=== PATIENT | male | born 1980 | race Caucasian/White ===

== ENCOUNTER 2018-12-19 01:37 | Emergency (ER) | payer SELFPAY ==
[2018-12-19] MEDS ORDERED: Ondansetron 4 MG/2 ML SDV IVPUSH ONE (01:53)
[2018-12-19] MEDS ORDERED: Sodium Chloride 0.9% 1,000 ML IV ONE (01:53)
--- NOTE | 2018-12-19 01:53 | EDM.PDOC ---
ED HPI GENERAL MEDICAL PROBLEM - General Chief Complaint: General Stated Complaint: SHORTNESS OF BREATH Time Seen by Provider: 12/19/18 01:50 - History of Present Illness INITIAL COMMENTS - FREE TEXT/NARRATIVE: HISTORY AND PHYSICAL: History of present illness: Patient's 38-year-old white male history of substance abuse and for methamphetamine presents with concern of dehydration states some generalized weakness denies nausea vomiting fever chills or other complaints. Review of systems: As per history of present illness and below otherwise all systems reviewed and negative. Past medical history: As per history of present illness and as reviewed below otherwise noncontributory. Surgical history: As per history of present illness and as reviewed below otherwise noncontributory. Social history: No reported history of drug or alcohol abuse. Family history: As per history of present illness and as reviewed below otherwise noncontributory. Physical exam: HEENT: Atraumatic, normocephalic, pupils reactive, negative for conjunctival pallor or scleral icterus, mucous membranes dry, throat clear, neck supple, nontender, trachea midline. Lungs: Clear to auscultation, breath sounds equal bilaterally, chest nontender. Heart: S1S2, regular, negative for clicks, rubs, or JVD. Abdomen: Soft, nondistended, nontender. Negative for masses or hepatosplenomegaly. Negative for costovertebral tenderness. Pelvis: Stable nontender. Genitourinary: Deferred. Rectal: Deferred. Extremities: Atraumatic, negative for cords or calf pain. Neurovascular unremarkable. Neuro: Awake, alert, oriented. Cranial nerves II through XII unremarkable. Cerebellum unremarkable. Motor and sensory unremarkable throughout. Exam nonfocal. Diagnostics: CBC CMP UA EKG Therapeutics: Saline 1 L bolus Impression: 1 medical screening exam #2 history of methamphetamine abuse #3 dehydration Definitive disposition and diagnosis as appropriate pending reevaluation and review of above. Head Pain Score (Numeric/FACES): 10 - Related Data Allergies Allergy/AdvReac Type Severity Reaction Status Date / Time No Known Allergies Allergy Verified 12/19/18 01:44 Home Meds: Home Meds . [No Known Home Meds] 04/29/16 [History] Past Medical History - Past Health History Medical/Surgical History: Denies Medical/Surgical History Musculoskeletal History: Reports: Fracture Other Musculoskeletal History: L Leg - Infectious Disease History Infectious Disease History: Reports: None Social & Family History - Family History Family Medical History: Noncontributory - Tobacco Use Smoking Status *Q: Current Every Day Smoker Years of Tobacco use: 25 Packs/Tins Daily: 1 - Caffeine Use Caffeine Use: Reports: Coffee - Recreational Drug Use Recreational Drug Use: No ED ROS GENERAL - Review of Systems Review Of Systems: ROS reveals no pertinent complaints other than HPI. ED EXAM, GENERAL - Physical Exam Exam: See Below (dictation) Course - Vital Signs Last Recorded V/S: Last Vital Signs Temp 36.7 C 12/19/18 01:45 Pulse 98 12/19/18 01:45 Resp 16 12/19/18 01:45 BP 132/91 H 12/19/18 01:45 Pulse Ox 96 12/19/18 01:45 Departure - Departure Time of Disposition: 01:52 Disposition: Home, Self-Care 01 Condition: Good Clinical Impression: Encounter for medical screening examination, Dehydration, Substance abuse - Discharge Information
[2018-12-19 02:24] LABS: CHLORIDE,CL 100 mmol/L (98-107); SODIUM,NA 136 mmol/L (136-148)
[2018-12-19 03:04] VITALS: BP 116/79
== END 2018-12-19 03:04 | disposition home or self-care (01) ==
LOC: MW.ED 01:37
DX: E86.0 Dehydration (principal); F19.10 Other psychoactive substance abuse, uncomplicated
CPT/HCPCS: 80053; 85025; 93005; 96361; 96374; 99284; J2405; J7040; 99283

== ENCOUNTER 2022-08-10 10:14 | Emergency (ER) | payer OTHER ==
[2022-08-10] MEDS ORDERED: Diphtheria,Pertussis(Acell),Tetanus Vaccine 0.5 ML Syringe IM ONE (10:22)
[2022-08-10] MEDS ORDERED: Lidocaine 1% with EPINEPHrine 1:100,000 10 ML MDV INJECT ONE (10:22)
[2022-08-10] MEDS ORDERED: Lidocaine 1% with EPINEPHrine 1:100,000 20 ML MDV INJECT ONE (11:00)
[2022-08-10 12:13] VITALS: BP 131/76; PULSE 63
== END 2022-08-10 10:58 | disposition home or self-care (01) ==
LOC: MW.ED 10:14
DX: S81.812A Laceration without foreign body, left lower leg, initial encounter (principal); H92.01 Otalgia, right ear; Z23 Encounter for immunization; W20.8XXA Other cause of strike by thrown, projected or falling object, initial encounter
CPT/HCPCS: 12001; 90471; 90715; 99282-25; 99283; J3490

== ENCOUNTER 2023-03-24 11:27 | Emergency (ER) | payer OTHER ==
[2023-03-24] MEDS ORDERED: Ondansetron 4 MG/2 ML SDV IVPUSH ONE (11:28)
[2023-03-24] MEDS ORDERED: Sodium Chloride 0.9% 2.5 ML Syringe FLUSH PRN (11:28)
[2023-03-24] MEDS ORDERED: fentaNYL 50 MCG/ML SDV IVPUSH ONE (11:28)
[2023-03-24] MEDS ORDERED: Naloxone 0.4 MG/ML SDV IVPUSH PRN (11:28)
[2023-03-24] MEDS ORDERED: Sodium Chloride 0.9% 10 ML Syringe FLUSH PRN (11:28)
[2023-03-24 11:42] LABS: BASOPHILS ABSOLUTE AUTO 0.06 K/uL (0.00-0.20); BASOPHILS PERCENT AUTO 0.6 % (0.0-1.0); EOSINOPHILS PERCENT AUTO 2.1 % (0.0-6.0); HEMATOCRIT 46.1 % (42.0-52.0); HEMOGLOBIN 16.7 g/dL (14.0-18.0); IMMATURE GRAN ABSOLUTE AUTO 0.04 K/uL (0.00-0.05); IMMATURE GRAN PERCENT AUTO 0.4 % (0.0-0.4); LYMPHOCYTES ABSOLUTE AUTO 3.63 K/uL (1.00-4.80); LYMPHOCYTES PERCENT AUTO 38.1 % (24.0-44.0); MEAN CORPUSCULAR HEMOGLOBIN 32.2 pg (28.0-32.0); MEAN CORPUSCULAR HGB CONC 36.2 g/dL (32.0-36.0); MONOCYTES PERCENT AUTO 6.3 % (0.0-8.0); NEUTROPHILS PERCENT AUTO 52.5 % (41.0-71.0); PLATELET COUNT,PLT 267 K/uL (150-400); RED BLOOD CELL COUNT 5.18 M/uL (4.52-5.90); WHITE BLOOD CELL COUNT,WBC 9.53 K/uL (3.9-11.3)
[2023-03-24 11:48] LABS: INR 1.06 (0.86-1.11)
[2023-03-24 12:02] LABS: A/G RATIO 1.1 (0.9-1.6); ALANINE AMINOTRANSFERASE,ALT 179 IU/L (14-63); ALBUMIN 4.1 g/dL (3.4-5.0); ALKALINE PHOSPHATASE 98 U/L (46-116); ASPARTATE AMNIOTRANSFERASE,AST 92 IU/L (15-37); BILIRUBIN TOTAL 0.5 mg/dL (0.2-1.0); BLOOD UREA NITROGEN,BUN 11 mg/dL (7.0-18.0); CALCIUM 9.4 mg/dL (8.5-10.1); CARBON DIOXIDE,CO2 25.2 mmol/L (21.0-32.0); CHLORIDE,CL 101 mmol/L (98-107); CREATININE 1.1 mg/dL (0.8-1.3); GLUCOSE RANDOM 102 mg/dL (74-106); LIPASE 35 U/L (16-77); POTASSIUM,K 3.8 mmol/L (3.5-5.1); PROTEIN TOTAL,TP 7.9 g/dL (6.4-8.2); SODIUM,NA 138 mmol/L (136-148)
[2023-03-24 12:05] LABS: ESTIMATED GFR 85 mL/min (>60)
[2023-03-24] MEDS ORDERED: Morphine 4 MG/ML Syringe IVPUSH ONE ×2 (12:09→14:43)
[2023-03-24] MEDS ORDERED: Iopamidol 755 MG/ML 500 ML Multipack Bottle IVPUSH STA (12:17)
[2023-03-24 12:23] VITALS: BP 127/104; PULSE 87
[2023-03-24] MEDS ORDERED: Lidocaine 4% 1 each Patch TOP STA (12:36)
[2023-03-24] MEDS ORDERED: Sodium Chloride 3% 250 ML IV SCH (13:30)
== END 2023-03-24 12:55 ==
LOC: MW.ED 11:27
DX: S06.5X0A Traumatic subdural hemorrhage without loss of consciousness, initial encounter (principal); S20.219A Contusion of unspecified front wall of thorax, initial encounter; S00.83XA Contusion of other part of head, initial encounter; S80.02XA Contusion of left knee, initial encounter; Z79.899 Other long term (current) drug therapy; V49.40XA Driver injured in collision with unspecified motor vehicles in traffic accident, initial encounter; Y92.410 Unspecified street and highway as the place of occurrence of the external cause
CPT/HCPCS: 36415; 70450; 71045; 71275; 72125; 73562; 74177; 80053; 83690; 84484; 85025; 85610; 86850; 86900; 86901; 93005; 96374; 96375; 99291; A9270; J1953; J2270; J2405; J3010; J3490; J7060; Q9967; 72128-26; 72131; 72131-26; 93010